=== PATIENT | female | born 1940 | race Caucasian/White ===

== ENCOUNTER 2023-01-13 15:54 | Outpatient (CLI) | payer MEDICARE | END 2023-01-13 15:55 | disposition home or self-care (01) | LOC: RAD-FRANK 15:54 | PROVIDERS: ATTEND Nurse Practitioner Family | DX: R05.1 Acute cough (principal); K44.9 Diaphragmatic hernia without obstruction or gangrene; J98.11 Atelectasis | CPT/HCPCS: 71046 ==